=== PATIENT | female | born 1970 | race African-American/Black ===

== ENCOUNTER → 2017-03-03 09:46 | Outpatient (CLI) | payer MEDICAID ==
[2014-03-15 11:48] VITALS: BMI 41.6
[~2017-03-03 09:46] MED LIST: ATARAX 25 MG TA25 MG PO; CLARITIN 10 MG10 MG PO; DILAUDID INJ2 MG/ML IV; ENDOCET 10-3251 TAB PO; ESTRACE1 MG PO; HYDRALAZINE HCL25 MG PO; LYRICA200 MG PO; NEURONTIN800 MG PO; PERCOCET 10/3251 TA1 PO; PHENERGAN25 MG/ML IM; PRAVACHOL40 MG PO; RELPAX40 MG PO; SOMA350 MG PO; TENORMIN50 MG PO; ZESTRIL40 MG PO; ZIPSOR25 MG PO; ZOLOFT25 MG PO
== END | disposition home or self-care (01) ==
LOC: D.MAMMO 02-12 11:15
DX: Z12.31 Encounter for screening mammogram for malignant neoplasm of breast (principal)